=== PATIENT | female | born 1950 | race Caucasian/White ===

== ENCOUNTER 2023-12-20 08:00 | Outpatient (RCR) | payer OTHER | END 2023-12-29 | LOC: PT 08:00 | PROVIDERS: ATTEND Specialist | DX: M17.11 Unilateral primary osteoarthritis, right knee (principal); M54.31 Sciatica, right side; M62.81 Muscle weakness (generalized); R26.2 Difficulty in walking, not elsewhere classified ==

== ENCOUNTER 2024-03-27 08:00 | Outpatient (RCR) | payer OTHER | END 2024-03-30 | LOC: PT 08:00 | PROVIDERS: ATTEND Physician Assistant | DX: M75.81 Other shoulder lesions, right shoulder (principal); M25.511 Pain in right shoulder; M62.81 Muscle weakness (generalized) ==

== ENCOUNTER 2024-04-03 06:10 | Outpatient (RCR) | payer OTHER | END 2024-04-29 | LOC: PT 06:10 | PROVIDERS: ATTEND Physician Assistant | DX: M75.81 Other shoulder lesions, right shoulder (principal); M25.511 Pain in right shoulder; M62.81 Muscle weakness (generalized) ==